=== PATIENT | female | born 2005 ===

== ENCOUNTER 2025-03-30 21:12 | Emergency (ER) | payer OTHER, SELFPAY ==
[2025-03-30] VITALS (7 sets, daily range): BP systolic 125–148; BP diastolic 70–77; PULSE 86–99; RESP 16–24; TEMP 36.2; O2SAT 97–100; BMI 25.7
--- NOTE | 2025-03-30 21:26 | DI.CT.S_ITS ---
PROCEDURE: CT ANGIO CHEST PE PROTOCOL INDICATIONS: chest pain, factor V hx TECHNIQUE: After the administration of intravenous contrast, 2 mm thick sections acquired from the pulmonary apices to the posterior costophrenic angles. 3-dimensional maximum intensity projection (MIP) coronal and sagittal reformats were then acquired through the thorax. For radiation dose reduction, the following was used: automated exposure control, adjustment of mA and/or kV according to patient size. COMPARISON: [facility], CR, XR CHEST 1V, 03/30/2025, 21:38. FINDINGS: Image quality: Diagnostic. Pulmonary arteries: Pulmonary arteries are normal in size, and demonstrate no intraluminal filling defects to suggest central pulmonary embolism. Lower Neck: No enlarged lymph nodes. Thyroid: No thyroid nodules which require sonographic follow up, per consensus guidelines. Axillae: No enlarged lymph nodes. Mild skin thickening at the 8 axillas. Chest Wall: Unremarkable. Bones: No suspicious osseous lesion. Lungs and Pleura: No pneumothorax or pleural effusions. No consolidation or suspicious nodules. Heart: Heart size is normal. No pericardial effusion. Thoracic Vessels: No aortic aneurysm. Mediastinum and Martha: No enlarged lymph nodes. Esophagus: No wall thickening. No hiatal hernia. Upper Abdomen: Visualized upper abdomen solid organs and bowel loops appear normal. IMPRESSION: 1. No pulmonary embolism. 2. No acute airspace opacity. Dictated by: Delfin Lai M.D. on 03/30/2025 at 22:53 Approved by: Delfin Lai M.D. on 03/30/2025 at 22:56
--- NOTE | 2025-03-30 21:26 | DI.RAD.S_ITS ---
PROCEDURE: XR CHEST 1V INDICATIONS: Chest Pain TECHNIQUE: One view of the chest was acquired. COMPARISON: None. FINDINGS: Surgical changes and devices: None. Lungs and pleura: Lungs are clear. No pleural effusions or pneumothorax. Mediastinum: Mediastinal contours appear normal. Heart size is normal. Bones and chest wall: No suspicious bony lesions. Overlying soft tissues appear unremarkable. IMPRESSION: No acute cardiopulmonary abnormality is seen. Dictated by: Delfin Lai M.D. on 03/30/2025 at 22:28 Approved by: Delfin Lai M.D. on 03/30/2025 at 22:29
[2025-03-30] MEDS: ASPIRIN 81 MG CHEW TAB 324 MG PO (21:59)
--- NOTE | 2025-03-30 22:12 | ED.CHESTPAIN ---
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 She denies any uti symptoms, cough, fever, chills, sore throat, back pain, diaphoresis, but did have 1 episode of nausea vomiting nonbilious nonbloody. She did have bowel movement earlier this morning. Other than what is stated 14 point review of system is negative. Related Data Allergies Allergy/AdvReac Type Severity Reaction Status Date / Time iodine Allergy swelling Verified 03/30/25 21:18 Review of Systems Review of Systems ROS Unobtainable: All systems reviewed & are unremarkable except as noted in HPI and below Patient History Social History Smoking Status: Never smoker Smoking Status: Never smoker Exam Narrative Exam Narrative: GENERAL: [19] year old patient appears stated age. Well-developed patient, in mild distress. HEAD: Atraumatic. Normocephalic. EYES: Pupils equal round and reactive. Extraocular motions intact. No scleral icterus. No injection or drainage. ENT: Nose without bleeding, purulent drainage. Throat without erythema, tonsillar hypertrophy or exudate. Airway patent. NECK: Trachea midline. Non tender CARDIOVASCULAR: Regular rate and rhythm without murmurs, gallops, or rubs. RESPIRATORY: Clear to auscultation. Breath sounds equal bilaterally. No wheezes, rales, or rhonchi. GASTROINTESTINAL: Abdomen soft, non-tender, nondistended. EXTREMITIES: No edema or joint tenderness. BACK: Nontender without deformity or crepitance. No flank tenderness. NEURO: AOx3. SKIN: No rash or erythema of visible areas Initial Vital Signs Initial Vital Signs: Vital Signs Temperature 97.2 F 03/30/25 21:18 Pulse Rate 86 03/30/25 21:18 Respiratory Rate 17 03/30/25 21:18 Blood Pressure 138/77 03/30/25 21:18 Pulse Oximetry 100 03/30/25 21:18 Oxygen Delivery Method Room Air 03/30/25 21:18 Scores HEART Score Heart Score history: Slightly Suspicious Heart Score EKG: Normal Heart Score Age: < 45 years old Heart Score risk factors: No known risk factors Heart Score troponin: < or = to normal limit Heart Score Total: 0 Course Orders Ordered: ED Orders 03/30/25 21:26 CT angio chest PE protocol Stat XR chest 1V Stat EKG-12 Lead Stat 03/30/25 21:55 Complete Blood Count AUTO DIFF Stat Comprehensive Metabolic Panel Stat Ketones (Beta-Hydroxybutyrate) Stat Lipase Stat Magnesium Stat NT-proBNP (BNP-Adult 18+) Stat PTT Partial Thromboplastin Micah Stat Prothrombin Time INR Stat Troponin & CK Cardiac Panel Stat Discontinued Medications Acetaminophen (Acetaminophen 325 Mg Tablet) 975 mg PO NOW ONE Stop: 03/30/25 22:15 Last Admin: 03/30/25 22:19 Dose: Not Given Documented By: ANA CRISTINA Hydrocodone Bitart/Acetaminophen (Hydrocodone/Acet 5/325 Tablet) 1 tab PO NOW ONE Stop: 03/30/25 22:20 Last Admin: 03/30/25 22:35 Dose: Not Given Documented By: ANA CRISTINA Aspirin (Aspirin 81 Mg Chew Tab) 324 mg PO NOW ONE Stop: 03/30/25 21:27 Last Admin: 03/30/25 21:59 Dose: 324 mg Documented By: ANA CRISTINA Lactated Ringer's (Lactated Ringers) 1,000 mls @ 1,000 mls/hr IV BOLUS ONE Stop: 03/30/25 23:34 Last Admin: 03/30/25 22:39 Dose: 1,000 mls/hr Documented By: ANA CRISTINA Ketorolac Tromethamine (Ketorolac 30 Mg/Ml Vial) 15 mg IV NOW ONE Stop: 03/30/25 22:13 Last Admin: 03/30/25 22:28 Dose: 15 mg Documented By: ANA CRISTINA Morphine Sulfate (Morphine 4 Mg/Ml Inj) 4 mg IV NOW ONE Stop: 03/30/25 22:36 Last Admin: 03/30/25 22:39 Dose: 4 mg Documented By: ANA CRISTINA Ondansetron HCl (Ondansetron 4 Mg/2 Ml Inj) 4 mg IV NOW ONE Stop: 03/30/25 22:21 Last Admin: 03/30/25 22:31 Dose: 4 mg Documented By: ANA CRISTINA Vital Signs Vital signs: Vital Signs - 8 hr 03/30/25 21:18 03/30/25 21:38 03/30/25 22:10 Temperature 97.2 F Pulse Rate 86 98 H 93 H Respiratory Rate 17 24 Blood Pressure 138/77 Pulse Oximetry 100 97 Oxygen Delivery Method Room Air 03/30/25 22:30 03/30/25 22:35 03/30/25 22:35 Temperature Pulse Rate 99 H 99 H Respiratory Rate 23 21 Blood Pressure 148/77 H Pulse Oximetry 100 99 Oxygen Delivery Method MDM - Chest Pain Lab Data 03/30/25 21:55 03/30/25 21:55 Labs: Lab Results 03/30/25 Range/Units 21:55 WBC 13.0 H (4.5-11.0) X10^3/uL RBC 4.32 (4.0-5.2) X10^6/uL Hgb 12.5 (12.0-16.0) g/dL Hct 37.8 (36-46) % MCV 87.4 (80-100) fL MCH 28.8 (26-34) PG MCHC 33.0 (30-36) % RDW 12.7 (11.6-14.8) % Plt Count 325 (150-400) X10^3/uL Neut % (Auto) 81.3 H (50-75) % Lymph % (Auto) 13.1 L (25-40) % [place] % (Auto) 4.1 (3-14) % Eos % (Auto) 0.5 L (2-4) % Baso % (Auto) 1.0 (0-2) % Neut # (Auto) 90890 H (8592-4948) /uL Lymph # (Auto) 1700 (2641-9858) /uL [place] # (Auto) 500 (0-900) /uL Eos # (Auto) 100 (0-450) /uL Baso # (Auto) 100 (0-100) /uL PT 11.8 (9.4-12.5) SECONDS INR 1.0 (0.9-1.3) APTT 34 (25.1-36.5) SECONDS Sodium 136 L (137-145) mmol/L Potassium 3.1 L (3.4-5.1) mmol/L Chloride 103 (98-107) mmol/L Carbon Dioxide 22 (22-32) mmol/L BUN 13 (7-17) mg/dL Creatinine 0.68 (0.52-1.04) mg/dL Estimated GFR > 60 (>60) mL/min BUN/Creatinine Ratio 19.1 (6-22) Glucose 106 H (70-99) mg/dL Calcium 9.0 (8.4-10.2) mg/dL Magnesium 1.6 (1.6-2.3) mg/dL Total Bilirubin 0.3 (0.2-1.3) mg/dL AST 25 (14-36) IU/L ALT 13 (<35) IU/L Alkaline Phosphatase 101 (38-126) U/L Total Creatine Kinase 73 (30-135) U/L Troponin I < 0.012 (0.01-0.034) ng/mL NT-Pro-B Natriuret Pep 46 (<125) pg/mL Total Protein 7.8 (6.3-8.2) g/dL Albumin 4.3 (3.5-5.0) g/dL Globulin 3.5 (1.7-4.1) g/dL Albumin/Globulin Ratio 1.2 (1.0-2.8) Lipase 40 (23-300) U/L Ketones 0.25 (<0.27) mmol/L Imaging Data CT scan - chest: Radiologist's Impression: [place] [address] CT Scan Report Signed Patient: DANIEL MANRIQUEZ MR#: [id number] : 2005 Acct:[id number] Age/Sex: 19 / F Date of Service: 03/30/25 Loc: ED Accession Number: [id number] Procedure: CT angio chest PE protocol Ordering Provider: Eugenio Anderson D.O. PROCEDURE: CT ANGIO CHEST PE PROTOCOL INDICATIONS: chest pain, factor V hx TECHNIQUE: After the administration of intravenous contrast, 2 mm thick sections acquired from the pulmonary apices to the posterior costophrenic angles. 3-dimensional maximum intensity projection (MIP) coronal and sagittal reformats were then acquired through the thorax. For radiation dose reduction, the following was used: automated exposure control, adjustment of mA and/or kV according to patient size. COMPARISON: [facility], CR, XR CHEST 1V, 03/30/2025, 21:38. FINDINGS: Image quality: Diagnostic. Pulmonary arteries: Pulmonary arteries are normal in size, and demonstrate no intraluminal filling defects to suggest central pulmonary embolism. Lower Neck: No enlarged lymph nodes. Thyroid: No thyroid nodules which require sonographic follow up, per consensus guidelines. Axillae: No enlarged lymph nodes. Mild skin thickening at the 8 axillas. Chest Wall: Unremarkable. Bones: No suspicious osseous lesion. Lungs and Pleura: No pneumothorax or pleural effusions. No consolidation or suspicious nodules. Heart: Heart size is normal. No pericardial effusion. Thoracic Vessels: No aortic aneurysm. Mediastinum and Martha: No enlarged lymph nodes. Esophagus: No wall thickening. No hiatal hernia. Upper Abdomen: Visualized upper abdomen solid organs and bowel loops appear normal. IMPRESSION: 1. No pulmonary embolism. 2. No acute airspace opacity. Chest x-ray: Radiologist's Impression: [address] [address] XRay Report Signed Patient: DANIEL MANRIQUEZ MR#: [id number] : 2005 Acct:[id number] Age/Sex: 19 / F Date of Service: 03/30/25 Loc: ED Accession Number: [id number] Procedure: XR chest 1V Ordering Provider: Eugenio Anderson D.O. PROCEDURE: XR CHEST 1V INDICATIONS: Chest Pain TECHNIQUE: One view of the chest was acquired. COMPARISON: None. FINDINGS: Surgical changes and devices: None. Lungs and pleura: Lungs are clear. No pleural effusions or pneumothorax. Mediastinum: Mediastinal contours appear normal. Heart size is normal. Bones and chest wall: No suspicious bony lesions. Overlying soft tissues appear unremarkable. IMPRESSION: No acute cardiopulmonary abnormality is seen. ECG Data Interpretation: NSR HR 94 MA 160 QRS [address]-t wave change No previous EKG to compare MDM Narrative Medical decision making narrative: All lab work, vital signs, nurse triage note, medication list, previous ER visits, and all imaging studies reviewed. CTA showed no acute airspace opacityand no pulmonary embolus. EKG normal sinus rhythm with no STT wave changes. WBC 13 hemoglobin 12.5 platelet 325 INR 1.0 sodium 136 potassium 3 point 10/10/2002 CO2 22 BUN 13 creatinine 0.68 glucose 106 he has a 1.6 troponin less than 0.012 P 46 lipase 40 ketones 0.25 patient given fluids Toradol and morphine here. Differential diagnosis includes PE chest wall pain pneumothorax Discharge Plan Departure Patient Disposition: Home Clinical Impression: Chest pain Qualifiers: Chest pain type: chest pain on breathing Qualified Code(s): R07.1 - Chest pain on breathing Instructions: DI for Chest Pain Activity Restrictions/Additional Instructions: Return with new or worsening symptoms. Alternate Tylenol or ibuprofen for pain control. Follow up PCP 1-2 days if no improvement in symptoms. Stand Alone Forms: Patient Portal/API
[2025-03-30 22:20] LABS: Add Manual Diff / Slide Review NO; Hematocrit 37.8 % (36-46); Hemoglobin 12.5 g/dL (12.0-16.0); Lymphocytes Absolute Auto 1700 /uL (1100-4500); Mean Corpuscular HGB Conc 33.0 % (30-36); Mean Corpuscular Hemoglobin 28.8 PG (26-34); Mean Corpuscular Volume 87.4 fL (80-100); Platelet Count 325 X10^3/uL (150-400)
[2025-03-30 22:28] LABS: INR 1.0 (0.9-1.3); Prothrombin Time 11.8 SECONDS (9.4-12.5)
[2025-03-30] MEDS: KETOROLAC 30 MG/ML VIAL 15 MG IV (22:28)
[2025-03-30 22:31] LABS: PTT Partial Thromboplastin Tim 34 SECONDS (25.1-36.5)
[2025-03-30] MEDS: ONDANSETRON 4 MG/2 ML INJ IV (22:31)
[2025-03-30] MEDS: LACTATED RINGERS 1,000 ML 1000 ML IV (22:39)
[2025-03-30] MEDS: MORPHINE 4 MG/ML INJ IV (22:39)
[2025-03-30 22:58] LABS: Alanine Aminotransferase 13 IU/L (<35); Albumin 4.3 g/dL (3.5-5.0); Albumin Globulin Ratio 1.2 (1.0-2.8); Alkaline Phosphatase 101 U/L (38-126); Blood Urea Nitrogen 13 mg/dL (7-17); Calcium 9.0 mg/dL (8.4-10.2); Carbon Dioxide 22 mmol/L (22-32); Chloride 103 mmol/L (98-107); Creatine Kinase 73 U/L (30-135); Estimated Glomerular Filt Rate > 60 mL/min (>60); Globulin 3.5 g/dL (1.7-4.1); Glucose 106 mg/dL (70-99); HEMOLYSIS < 15 (0-50); Lipase 40 U/L (23-300); Magnesium 1.6 mg/dL (1.6-2.3); Potassium 3.1 mmol/L (3.4-5.1); Sodium 136 mmol/L (137-145); Total Protein 7.8 g/dL (6.3-8.2)
--- NOTE | 2025-03-30 23:01 | EKG_ITS ---
[address] [address] Test Date: 2025-03-30 Pat Name: DANIEL MANRIQUEZ Department: [facility] Room: Gender: Female Abalone Diver: ALYCE : 2005 Requested By: Order Number: [id number] Reading MD: Eugenio López MD Measurements Intervals Fabius Rate: 94 P: 29 VT: 160 QRS: 32 QRSD: 86 T: 35 QT: 370 QTc: 462 Interpretive Statements Normal sinus rhythm Electronically Signed On 03-31-2025 7:41:47 PDT by Eugenio López MD
[2025-03-30 23:04] LABS: Ketones (Beta-Hydroxybutyrate) 0.25 mmol/L (<0.27)
[2025-03-30 23:10] LABS: NT-proBNP (BNP-Adult 18+) 46 pg/mL (<125); Troponin I < 0.012 ng/mL (0.01-0.034)
[2025-03-30] MEDS: POTASSIUM CHLORIDE 20 MEQ/15 ML UDC 40 MEQ PO (23:54)
== END 2025-03-31 00:08 | disposition home or self-care (01) ==
PROVIDERS: Emergency Provider Family Medicine
DX: R07.1 Chest pain on breathing (principal)
CPT/HCPCS: 36415; 71045; 71275; 80053; 82009; 82550; 83690; 83735; 83880; 84484; 85025; 85610; 85730; 93005; 96361; 96374; 96375; 99284; J1885; J2272; J2405; J7120; Q9967

== ENCOUNTER 2025-05-19 17:10 | Emergency (ER) | payer OTHER, SELFPAY ==
[2025-05-19 17:32] VITALS: BP 142/88; PULSE 88; RESP 19; TEMP 36.8; O2SAT 100; BMI 25.7
--- NOTE | 2025-05-19 17:40 | DI.RAD.S_ITS ---
PROCEDURE: XR ELBOW LT MIN 3V INDICATIONS: pain sweilling TECHNIQUE: 3 views of the elbow were acquired. COMPARISON: None. FINDINGS: Bones: No fractures or dislocations. No suspicious bony lesions. Soft tissues: No elbow joint effusion. No suspicious soft tissue calcifications. IMPRESSION: No acute bony abnormality or significant joint effusion. Dictated by: Chay Mcneal M.D. on 05/19/2025 at 18:40 Approved by: Chay Mcneal M.D. on 05/19/2025 at 18:41
--- NOTE | 2025-05-20 12:09 | ED_ITS ---
HPI - Extremity Problem General Chief complaint: Extremity Problem,Nontraumatic Stated complaint: Lt elbow px/blood clot x 5 weeks Time Seen by Provider: 05/19/25 17:46 Source: patient Mode of arrival: Family Vehicle History of Present Illness HPI Narrative: 19-year-old female presents to the ED with 2 weeks of left elbow pain. No trauma. Patient states that her pain started spontaneously, she had some chiropractor like manipulations from a co-worker several times for it, the pain worsened over the last 2 weeks. Patient is complaining of pain just above the outer elbow. Pain is worsened with movement of the arm. No numbness, tingling, weakness. Related Data Allergies Allergy/AdvReac Type Severity Reaction Status Date / Time iodine Allergy swelling Verified 05/19/25 17:31 Review of Systems Constitutional Constitutional: Denies chills, Denies fatigue, Denies fever(s), Denies frequent falls, Denies lethargy and Denies weakness Eyes Eyes: Denies change in vision, Denies eye discharge, Denies irritation and Denies loss of vision ENT Ears, Nose, Mouth, and Throat: Denies change in voice, Denies dizziness, Denies neck pain, Denies sore throat and Denies throat swelling Cardiovascular Cardiovascular: Denies chest pain, Denies irregular heart rhythm, Denies lightheadedness, Denies palpitations, Denies dyspnea, Denies dyspnea on exertion and Denies orthopnea Respiratory Respiratory: Denies cough, Denies dyspnea, Denies dyspnea on exertion and Denies wheezing Gastrointestinal Gastrointestinal: Denies abdominal pain, Denies change in bowel habits, Denies diarrhea, Denies nausea and Denies vomiting Musculoskeletal Musculoskeletal: Denies neck pain and Denies numbness Comments: Left elbow pain Integumentary/Breasts Skin/Breast: Denies pruritus, Denies erythema, Denies rash and Denies wounds Neurologic Neurologic: Denies behavioral changes, Denies confusion, Denies dizziness, Denies frequent falls, Denies loss of vision, Denies numbness and Denies weakness Psychiatric Psychiatric: Denies anxiety, Denies behavioral changes, Denies confusion, Denies depression, Denies homicidal ideation and Denies suicidal ideation Endocrine Endocrine: Denies fatigue, Denies flushing and Denies palpitations Hematologic/Lymphatic Hematologic/Lymphatic: Denies easy bruising Allergic/Immunologic Allergic/Immunologic: Denies urticaria, Denies throat swelling and Denies wheezing Patient History Smoking Status: Never smoker Exam Narrative Exam Narrative: Const General:?cooperative, healthy appearing and comfortable HENKY Head:?normal to inspection Ears:?hearing grossly normal bilaterally Nose:?external nose normal Face and sinus:?normal facial exam and sinuses nontender Mouth:?oral mucosae normal Throat:?posterior oropharynx normal Eyes General:?appearance normal, both eyes and all related structures Neck Neck:?normal visual inspection and no lymphadenopathy noted Resp Effort & Inspection:?normal respiratory effort Auscultation:?clear to auscultation bilaterally Cardio Rate:?regular rate Rhythm:?regular rhythm Musculoskeletal No bony tenderness to palpation of the elbow. There is some soft tissue tenderness just proximal to the posterior left elbow. Full range of motion. Neurovascularly intact. Neuro General:?patient alert, patient awake and patient oriented x3 Initial Vital Signs Initial Vital Signs: Vital Signs Temperature 98.3 F 05/19/25 17:32 Pulse Rate 88 05/19/25 17:32 Respiratory Rate 19 05/19/25 17:32 Blood Pressure 142/88 H 05/19/25 17:32 Pulse Oximetry 100 05/19/25 17:32 Oxygen Delivery Method Room Air 05/19/25 17:32 MDM - Extremity (Nontraumatic) MDM Narrative Medical decision making narrative: 19-year-old female presents to the ED with 2 weeks of left elbow pain. X-ray was obtained to rule out fracture/dislocation. X-ray with no acute bony abnormality or significant joint effusion. Patient's symptoms are most consistent with a musculoskeletal sprain/strain. Recommendc RICE, heat, ibuprofen, Tylenol. Recommend refraining from any chiropractic adjustments, since this can potentially worsen the injury. Recommend follow-up with PCP if symptoms do not improve over the next few days. ED return precautions discussed with patient. Patient verbalized understanding. Medical records reviewed: Yes Discharge Plan Departure Patient Disposition: Home Clinical Impression: Elbow sprain Qualifiers: Encounter type: initial encounter Laterality: left Qualified Code(s): S53.402A - Unspecified sprain of left elbow, initial encounter Instructions: DI for Elbow Sprain Activity Restrictions/Additional Instructions: You were evaluated in the emergency department today for elbow pain. The x- ray was normal. It appears that you have a sprain of the elbow which is causing your symptoms. Please rest the elbow, ice, Jacinto wrap to aid healing. You may take ibuprofen, Tylenol for pain. Please refrain from any manipulations of the area since that can further aggravated. Please follow-up with your primary care doctor as soon as possible. Return to the ED if you have worsening symptoms, numbness, tingling, weakness. Stand Alone Forms: Patient Portal/API
== END 2025-05-19 19:17 | disposition home or self-care (01) ==
PROVIDERS: Emergency Provider Student in an Organized Health Care Education/Training Program
DX: S53.492A Other sprain of left elbow, initial encounter (principal); X58.XXXA Exposure to other specified factors, initial encounter
CPT/HCPCS: 73080; 99281; 99283